=== PATIENT | female | born 2000 | race Caucasian/White ===

== ENCOUNTER 2019-10-29 20:34 | Emergency (ER) | payer BC ==
[~2019-10-29] VITALS: Ht 170.2 cm; Wt 81.6 kg
[2019-10-29 20:41] VITALS: BP_SYST 122
--- NOTE | 2019-10-29 20:45 | NUR ---
Patient triaged and placed in waiting room. VSS and patient appears in no acute distress at this time. Accompanied by self, awaiting available bed, and MD notified of need for MSE.
--- NOTE | 2019-10-29 21:12 | NUR ---
Patient to ER bed 8 to gown for evaluation. Side rails up. Report given to Pratima UGALDE.
--- NOTE | 2019-10-29 21:13 | NUR ---
Pt AAOx4 ambulated into ED c/o L ear ache x 2 days with worsening symptoms today. No discharge noted. No other injuries/complaints per pt/noted. Will continue to monitor.
--- NOTE | 2019-10-29 21:16 | NUR ---
ER Dr. Cid at bedside examining patient.
--- NOTE | 2019-10-29 21:34 | NUR ---
Patient given written and verbal discharge instructions and verbalizes understanding. ER MD Cid discussed with patient the results and treatment provided. Patient in stable condition. ID arm band removed. Rx of Cortisporin Otic Solution given. Patient educated on pain management and to follow up with PMD. Pain Scale 3. Opportunity for questions provided and answered. Medication side effect fact sheet provided.
[2019-10-29 21:35] VITALS: BP_SYST 118
== END 2019-10-29 21:34 | disposition home or self-care (01) ==
LOC: SED 20:34
DX: H60.92 Unspecified otitis externa, left ear (principal)
CPT/HCPCS: 99283